=== PATIENT | male | born 1960 ===

== ENCOUNTER 2021-11-27 19:03 | Emergency (ER) | payer MEDICAID ==
[~2021-11-27] VITALS: Ht 182.9 cm; Wt 84.0 kg
[2021-11-27 19:08] VITALS: BP 184/108
[2021-11-27] MEDS ORDERED: AMLODIPINE 5MG TABLET PO ONE (20:15)
== END 2021-11-27 23:22 | disposition home or self-care (01) ==
LOC: ER 19:03
DX: I10 Essential (primary) hypertension (principal); Z85.9 Personal history of malignant neoplasm, unspecified; Z98.890 Other specified postprocedural states
CPT/HCPCS: 93005; 99283